=== PATIENT | female | born 1960 | race Two or more races ===

== ENCOUNTER 2019-09-06 22:17 | Emergency (ER) | payer OTHER ==
[~2019-09-06] VITALS: Ht 152.4 cm; Wt 47.6 kg
[2019-09-07] MEDS ORDERED: NAPROXEN500 MG PO (01:52)
== END 2019-09-07 02:12 | disposition home or self-care (01) ==
LOC: ER 22:17
DX: S20.211A Contusion of right front wall of thorax, initial encounter (principal); R07.89 Other chest pain; W54.1XXA Struck by dog, initial encounter; Y93.89 Activity, other specified; Y92.098 Other place in other non-institutional residence as the place of occurrence of the external cause; Y99.8 Other external cause status

== ENCOUNTER 2022-05-17 12:17 | Outpatient (CLI) | payer OTHER ==
[~2022-05-17 12:17] MED LIST: NAPROXEN500 MG PO
== END 2022-05-17 12:29 | disposition home or self-care (01) ==
LOC: SONOGRAMA 12:17
PROVIDERS: ATTEND Specialist
DX: N17.9 Acute kidney failure, unspecified (principal)

== ENCOUNTER 2023-05-03 10:49 | Emergency (ER) | payer OTHER ==
[~2023-05-03] VITALS: Ht 154.9 cm; Wt 42.2 kg
== END 2023-05-03 12:08 | disposition home or self-care (01) ==
LOC: ER 10:49
DX: S09.8XXA Other specified injuries of head, initial encounter (principal); W19.XXXA Unspecified fall, initial encounter; Y93.89 Activity, other specified; Y92.89 Other specified places as the place of occurrence of the external cause; Y99.8 Other external cause status; R53.81 Other malaise

== ENCOUNTER 2024-08-07 11:32 | Emergency (ER) | payer OTHER ==
[~2024-08-07] VITALS: Ht 152.4 cm; Wt 46.7 kg
[2024-08-07] MEDS ORDERED: 0.9 % SODIUM CHLORIDE 1,000 ML IV STA (12:49)
[2024-08-07 13:35] LABS: HEMATOCRIT 36.4 % (36.0-45.00); HEMOGLOBIN 12.2 g/dL (12.0-15.00); MEAN CELL VOLUME 88.2 fL (80.00-100.00); MEAN CORPUSCULAR HEMOGLOBIN 29.5 pg (27.00-32.0); MEAN CORPUSCULAR HGB CONC 33.5 g/dl (32.0-36.0); PLATELET COUNT 371 K/uL (150-450); RED BLOOD COUNT 4.13 M/uL (4.00-6.00)
[2024-08-07 14:13] LABS: CALCIUM 9.5 mg/dL (8.5-10.1); CREATININE SERUM 0.89 mg/dL (0.55-1.02); GFR 63.46
[2024-08-07 16:04] LABS: PH,URINE 6.5 (5.0-8.0); URINE APPEARANCE Clear; URINE BILIRRUBIN Negative (NEGATIVE); URINE BLOOD Negative; URINE COLOR Yellow; URINE GLUCOSE Negative (NEGATIVE); URINE KETONE 15 (NEGATIVE); URINE LEUKOCYTE Negative; URINE NITRATE Negative; URINE PROTEIN Negative (NEGATIVE); URINE UROBILINOGEN 0.2 E.U./dl
[2024-08-07 16:07] LABS: URINE BACTERIA 23.9 uL (0.0-1933); URINE EPITHELIAL CELLS 6.9 uL (0.0-38.8); URINE RBC 10.5 uL (0.0-20.8)
[2024-08-07 16:09] LABS: URINE CAST 0.61 uL (0.0-1.40); URINE WBC 1.6 uL (0.0-23.2)
== END 2024-08-07 16:25 | disposition home or self-care (01) ==
LOC: ER 11:32
PROVIDERS: Emergency Medicine
DX: R42 Dizziness and giddiness (principal); Z20.822 Contact with and (suspected) exposure to COVID-19; E03.8 Other specified hypothyroidism

== ENCOUNTER → 2024-12-12 09:01 | Outpatient (CLI) | payer OTHER | END | disposition home or self-care (01) | LOC: NUCLEAR 12-03 08:00 | PROVIDERS: ATTEND Specialist | DX: I65.29 Occlusion and stenosis of unspecified carotid artery (principal) ==